=== PATIENT | female | born 1940 | race Caucasian/White ===

== ENCOUNTER → 2019-10-02 | Outpatient (CLI) | payer OTHER | LOC: SJCVC 11:09 | PROVIDERS: ATTEND Internal Medicine Cardiovascular Disease | DX: I25.10 Atherosclerotic heart disease of native coronary artery without angina pectoris (principal); E78.5 Hyperlipidemia, unspecified; R93.1 Abnormal findings on diagnostic imaging of heart and coronary circulation; R94.31 Abnormal electrocardiogram [ECG] [EKG]; E78.00 Pure hypercholesterolemia, unspecified; R60.9 Edema, unspecified; Z79.82 Long term (current) use of aspirin; Z79.899 Other long term (current) drug therapy ==

== ENCOUNTER → 2019-10-07 | Outpatient (CLI) | payer OTHER | LOC: SJCVCIMAG 08:00 | PROVIDERS: ATTEND Internal Medicine Cardiovascular Disease | DX: R94.31 Abnormal electrocardiogram [ECG] [EKG] (principal); I25.10 Atherosclerotic heart disease of native coronary artery without angina pectoris; I10 Essential (primary) hypertension; E78.5 Hyperlipidemia, unspecified ==

== ENCOUNTER → 2019-10-14 | Outpatient (CLI) | payer OTHER | LOC: SJCVCIMAG 10:28 | PROVIDERS: ATTEND Internal Medicine Cardiovascular Disease | DX: R94.31 Abnormal electrocardiogram [ECG] [EKG] (principal); I49.1 Atrial premature depolarization; I25.10 Atherosclerotic heart disease of native coronary artery without angina pectoris; E78.5 Hyperlipidemia, unspecified; Z79.899 Other long term (current) drug therapy ==

== ENCOUNTER → 2020-07-14 | Outpatient (CLI) | payer OTHER | LOC: SJCVC 13:25 | PROVIDERS: ATTEND Internal Medicine Cardiovascular Disease | DX: R93.1 Abnormal findings on diagnostic imaging of heart and coronary circulation (principal); I25.10 Atherosclerotic heart disease of native coronary artery without angina pectoris; R94.31 Abnormal electrocardiogram [ECG] [EKG]; E78.5 Hyperlipidemia, unspecified; R60.9 Edema, unspecified; Z79.02 Long term (current) use of antithrombotics/antiplatelets; Z79.899 Other long term (current) drug therapy ==

== ENCOUNTER → 2020-12-09 | Outpatient (CLI) | payer OTHER ==
[~2020-12-09] MED LIST: ASA81BEC PO; AZO CRANBERRY1 EACH PO; BIOTIN1 MG PO; FLAXSEED OIL1000 MG PO; GINKGO BILOBA40 MG PO; MULTI VITAMIN1 EACH PO; ROSUVASTATIN CA20 MG PO; VITAMIN B-12500 MC5 SUBLING; VITAMIN D325 MC2 PO; [UNRECOGNIZED DRUG - OTHER] PO; [UNRECOGNIZED DRUG - OTHER] PO
== END ==
LOC: LAB 06:16
PROVIDERS: ATTEND Student in an Organized Health Care Education/Training Program
DX: Z01.812 Encounter for preprocedural laboratory examination (principal); Z20.822 Contact with and (suspected) exposure to COVID-19

== ENCOUNTER → 2020-12-11 | Outpatient (CLI) | payer OTHER ==
[~2020-12-11] VITALS: Ht 175.3 cm; Wt 73.0 kg
--- NOTE | 2020-12-11 13:48 | P ---
[facility] [place] [address] PROCEDURE REPORT Name: GENNY BRO [id number] Admission: 12/11/20 Attend Phys: Americo Ivy Discharge: Date of : 44 Report #: [id number] THIS REPORT FOR: cc: Shahida Ugarte MD, Cora A. MD McElhinney, Christian C. MD ~ cc: Shahida Ugarte MD DATE OF SERVICE: 12/11/2020 PROCEDURE PERFORMED: Upper endoscopy. HISTORY OF PRESENT ILLNESS: The patient is a 80-year-old female who reports a Hemoccult positive stool recently. Also had one dark stool and one episode of bright red blood per rectum. She has never had an EGD or colonoscopy before. She denies any heartburn. No nausea, vomiting or dysphagia. Her weight has been stable. No family history of colon cancer. Plan is for EGD and colonoscopy today. DESCRIPTION OF PROCEDURE: The risks and benefits of the procedure were explained to the patient, those risks including but not limited to bleeding, perforation and the risk of sedation. She understood these risks and gave informed consent. Sedation was given using propofol per anesthesia. Next, using a standard Olympus upper endoscope, the scope was placed in the patient's mouth and advanced under direct vision through the esophagus, stomach and into the second portion of the duodenum. The esophagus was normal throughout. The GE junction was normal. Overall, the gastric mucosa was normal. The pylorus was normal and patent. The duodenal bulb, first and second portion were all normal. The scope was then withdrawn and the procedure terminated. The patient tolerated the procedure well. IMPRESSION: Normal upper endoscopy. RECOMMENDATIONS: We will proceed with colonoscopy next today. Thank you for allowing me to participate in her care. <ELECTRONICALLY SIGNED> By: Americo Camejo MD 12/11/20 1348 [id number] [id number] Americo Camejo MD /nt
--- NOTE | 2020-12-12 10:06 | P ---
[facility] [place] [address] PROCEDURE REPORT Name: GENNY BRO Room #: [facility] [id number] Admission: 12/11/20 Attend Phys: Americo Ivy Discharge: Date of : 44 Report #: [id number] THIS REPORT FOR: cc: Shahida Ugarte MD, Cora A. MD McElhinney, Christian C. MD ~ cc: Shahida Ugarte MD DATE OF SERVICE: 12/11/2020 PROCEDURE PERFORMED: Colonoscopy with polypectomies. HISTORY OF PRESENT ILLNESS: The patient is a 80-year-old female with a history of Hemoccult positive stool. She has noted a small amount of bright red blood per rectum at times as well as dark stool. Never had a colonoscopy in the past. No family history of colon cancer. DESCRIPTION OF PROCEDURE: The risks and benefits of the procedure were explained to the patient, those risks including but not limited to bleeding, perforation and the risk of sedation. She understood these risks and gave informed consent. Sedation was given using propofol per anesthesia. Next, a digital rectal exam showed external hemorrhoids, otherwise normal. Next, using a standard Olympus colonoscope, the scope was placed in the patient's anus and advanced under direct vision to the cecum. The overall prep was excellent. The cecum and ileocecal valve were normal. In the ascending colon, a total of 4 polyps were noted. The 3 smallest were 3 mm in size and removed with cold forceps, the larger was 8 mm and removed by snare cautery. The transverse and descending colon were normal. Multiple small diverticula were noted in the sigmoid colon. No evidence of inflammation or bleeding. The rectal mucosa was normal. On retroflexion, small nonbleeding internal hemorrhoids with a medium sized external hemorrhoids noted. No bleeding. The scope was then withdrawn and the procedure terminated. The patient tolerated the procedure well. IMPRESSION: 1. Four colonic polyps. 2. Sigmoid diverticulosis. 3. Internal and external hemorrhoids. 4. Otherwise normal colonoscopy. RECOMMENDATIONS: 1. Await biopsy results. 2. Recent blood in stool, likely secondary to hemorrhoids. Recommend high fiber diet and Analpram on a p.r.n. basis. 3. Consider repeat colonoscopy in [address] [address] PROCEDURE REPORT Name: GENNY BRO Room #: REG [facility] Jenaro#: [id number] Admission: 12/11/20 Attend Phys: Americo Ivy Discharge: Date of : 44 Report #: [id number] Thank you for allowing me to participate in her care. <ELECTRONICALLY SIGNED> By: Americo Camejo MD 12/12/20 1006 1106 1246 Americo Camejo MD /nt
--- NOTE | 2020-12-15 18:06 | PATH ---
[facility] [address] [place] [address] PATHOLOGY RPT PROCEDURE Name: BAN BRO Uriel Room #: REG [facility].#: [id number] Admission: 12/11/20 Date of : 44 Discharge: Report #: [id number] Path Case #: [id number] [facility] Accession Number: [id number] . 01 Material submitted: . colon - ASCENDING COLON POLYPS SNARE AND BIOPSY. Modifiers: ascending . 01 Clinical history: . EGD/COLONOSCOPY BLOOD IN STOOL . 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 - Negative for high-grade dysplasia. 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 02 Electronically signed: . Gretel Mcadams MD, Pathologist NPI- [id number] . 01 Gross description: . Received in formalin labeled "Ban Bro, ascending colon polyp snare and BX" are multiple castillo-brown soft tissue fragments measuring in aggregate 0.7 x 0.6 x 0.1 cm, which are submitted in A1. Also present within the container is a castillo-brown nodular polyp measuring 0.5 x 0.5 x 0.4 cm. The margin is inked black and the polyp is bisected and submitted in A2. ([facility]; 12/14/2020) [facility] 12/14/2020 1017 Local . 02 Pathologist provided ICD-10: D12.2 . 02 CPT . 666534 Specimen Comment: A courtesy copy of this report has been sent to [phone] Specimen Comment: [phone] Specimen Comment: Report sent to / DR ARNOLD Performed at: [address] [id number] MD Anthony Duong MD Phone: [phone] Performed at: [address] [id number] [address] [address] PATHOLOGY RPT PROCEDURE Name: BAN BRO Uriel Room #: REG [facility] Jenaro#: [id number] Admission: 12/11/20 Date of : 44 Discharge: Report #: [id number] Path Case #: [id number] MD Gretel Mcadams MD Phone: [phone]
== END | disposition home or self-care (01) ==
LOC: GI
PROVIDERS: ATTEND Specialist
DX: K92.1 Melena (principal); D12.2 Benign neoplasm of ascending colon; K57.30 Diverticulosis of large intestine without perforation or abscess without bleeding; K64.8 Other hemorrhoids; K64.4 Residual hemorrhoidal skin tags; E78.5 Hyperlipidemia, unspecified; Z98.890 Other specified postprocedural states; Z79.899 Other long term (current) drug therapy; Z85.828 Personal history of other malignant neoplasm of skin; Z90.49 Acquired absence of other specified parts of digestive tract; Z98.41 Cataract extraction status, right eye; Z98.42 Cataract extraction status, left eye; Z88.2 Allergy status to sulfonamides; Z88.8 Allergy status to other drugs, medicaments and biological substances
CPT/HCPCS: 62110; 62900